=== PATIENT | male | born 1955 | race Caucasian/White ===

== ENCOUNTER 2024-04-18 14:12 | Emergency (ER) | payer OTHER ==
[~2024-04-18] VITALS: Ht 177.8 cm; Wt 107.0 kg
[2024-04-18] MEDS ORDERED: LIDOCAINE HCL 1% 20 ML VIAL INJ STA (15:52)
[2024-04-18] MEDS ORDERED: OCTYL 2-CYANOACRYLATE 1 EACH TP ONE ×2 (16:47→16:52)
[2024-04-18] MEDS: cefTRIAXone 1G VIAL IM ONE (17:38)
[2024-04-18] MEDS: teTANUS/diphthERIA TOXOID [ADULT] 0.5 ML VIAL IM ONE (17:40)
[2024-04-18 17:53] VITALS: BP 155/91; PULSE 79; RESP 18; TEMP 98.6; O2SAT 98
== END 2024-04-18 17:54 | disposition home or self-care (01) ==
LOC: EDH 14:12
DX: S91.211A Laceration without foreign body of right great toe with damage to nail, initial encounter (principal); I10 Essential (primary) hypertension; I25.10 Atherosclerotic heart disease of native coronary artery without angina pectoris; J44.9 Chronic obstructive pulmonary disease, unspecified; Z88.0 Allergy status to penicillin; W20.8XXA Other cause of strike by thrown, projected or falling object, initial encounter; Y93.89 Activity, other specified; Y92.89 Other specified places as the place of occurrence of the external cause; Y99.8 Other external cause status
CPT/HCPCS: 99285; 11760; 90714; 73630; 90471; 96372; J0696

== ENCOUNTER → 2024-08-27 | Outpatient (CLI) | payer OTHER ==
--- NOTE | 2024-08-27 14:17 | HMCIMG ---
Exam Type: CT sinuses without contrast Clinical Information: Comparison: CT Dose Index (CTDI): mGy Dose Length Product (DLP): total Technique: Examination is done with multiple axial slices as well as coronal and sagittal reformations. No contrast was used. FINDINGS: No air fluid levels are seen to suggest acute sinusitis. There is no bone destruction or sclerosis to suggest osteitis, chronic sinusitis. However, there are inflammatory changes, nonspecific, often the mucosa, particularly of the ostiomeatal unit. No bone destruction is seen. The ostiomeatal units are preserved and so are the nasal middle meatus regions bilaterally. The nasofrontal and sphenoethmoidal recesses are patent. The lamina papyracea and fovea ethmoidalis are preserved. The william brian is well-seen. The nasopharyngeal recesses are intact. The visualized portions of the airway are intact, as well. There are no other gross abnormalities. IMPRESSION: No evidence of acute or chronic sinusitis. Nonspecific mucosal inflammatory changes.
== END | disposition home or self-care (01) ==
LOC: RAH 13:12
PROVIDERS: ATTEND Otolaryngology Plastic Surgery within the Head & Neck
DX: J32.8 Other chronic sinusitis (principal); J34.89 Other specified disorders of nose and nasal sinuses
CPT/HCPCS: 70486